=== PATIENT | female | born 1990 | race Caucasian/White ===

== ENCOUNTER 2016-09-18 18:20 | Emergency (ER) | payer OTHER ==
--- NOTE | 2016-09-18 18:51 | PROVIDER DOCUMENTATION ---
HPI-General Adult - General Chief Complaint: Flu Symptoms Stated Complaint: FLU SX Time Seen by Provider: 09/18/16 18:45 Source: patient Allergies/Adverse Reactions: Patient Allergies Allergy/AdvReac Type Severity Reaction Status Date / Time No Known Allergies Allergy Verified 11/13/14 17:48 Home Medications: Pnv95/Ferrous Fumarate/FA [ Caplet] 1 tab PO DAILY 08/19/15 - History of Present Illness -Gen Adult Nature of Presenting Problems: 26 y/o WF c/o fever/chills, cough, SOB, body aches x 2 days. Pt states cough is not productive at this time. Reports fever of 102F at home. States weakness and can't lift 1 y/o child. States sick contacts. Pt has had influenza vaccine this year. Taking tylenol and motrin at home. Review of Systems - Adult - REVIEW OF SYSTEMS - ADULT Constitutional: reports: see HPI, chills, fever Eyes: reports: no symptoms reported. denies: blurred vision, double vision Ears, Nose, Mouth & Throat: reports: no symptoms reported. denies: ear pain, sinus problem, throat pain Cardiovascular: reports: no symptoms reported. denies: chest pain, palpitations Respiratory: reports: see HPI, cough, shortness of breath. denies: wheezing Gastrointestinal: reports: no symptoms reported. denies: abdominal pain, constipation, diarrhea, nausea, vomiting Genitourinary: reports: no symptoms reported. denies: dysuria, frequency Musculoskeletal: reports: see HPI, muscle aches. denies: joint pain, joint swelling Integumentary: reports: no symptoms reported. denies: nail changes, rash Neurological: reports: see HPI, headache/migraines (with fever). denies: numbness, paresthesia Psychiatric: reports: no symptoms reported Endocrine: reports: no symptoms reported. denies: cold intolerance, heat intolerance Hematologic/Lymphatic: reports: no symptoms reported. denies: easy bruising, prolonged bleeding Allergic/Immunologic: reports: no symptoms reported All Other Systems: Reviewed and Negative Past History - Adult - PAST MEDICAL HISTORY-ADULT Review of Records: reports: Nursing Assessment Review, Medications Reviewed Major Childhood Illnesses: reports: denies history Cardiovascular: reports: denies history Respiratory: reports: denies history Gastrointestinal: reports: denies history Obstetrical/Gynecological: reports: denies history Genitourinary: reports: denies history Musculoskeletal: reports: denies history Neurological: reports: denies history Endocrine/Immune: reports: denies history Other Conditions: reports: denies history - PRIOR SURGERIES/PROCEDURES Surgical/Procedure History: reports: reviewed, not pertinent - PRIOR HOSPITALIZATIONS Prior Hospitalizations: reports: none - IMMUNIZATION STATUS Childhood Immunizations: See Nurse Assessment Flu Vaccine: See Nurse Assessment - FAMILY HISTORY Family History: reviewed, not pertinent - SOCIAL HISTORY Smoking: cigarettes, less than 1 pack/day Provider spent 3-5 mins advising pt. on dangers of tobacco.: Discussed manners to quit use, and f/u contacts for add'l counseling. Alcohol Use Frequency: never Physical Exam-General - PHYSICAL EXAM-ADULT Initial Vital Signs Reviewed: Yes - CONSTITUTIONAL General Appearance: alert, moderate distress - EYES Eyes: pink conjunctivae - HEAD, EARS, NOSE, MOUTH & THROAT HENMT: normocephalic/atraumatic, moist mucous membranes - NECK Neck: supple, normal inspection. negative: Brudzinski's sign, lymphadenopathy - RESPIRATORY Respiratory: no respiratory distress, decreased breath sounds, wheezing. negative: crackles, rales, rhonchi, stridor - CARDIOVASCULAR Cardiovascular: regular rate, rhythm. negative: bradycardia, tachycardia - GASTROINTESTINAL (ABDOMEN) Abdominal Exam: normal bowel sounds, non tender, soft. negative: distended, guarding, rigid, rebound - MUSCULOSKELETAL Back Exam: no CVA tenderness Extremity: normal gait, normal capillary refill. negative: abnormal NV exam - SKIN Integumentary: normal color, normal turgor, warm/dry - NEUROLOGIC Neurologic: negative: aphasia - PSYCHIATRIC Psych/Mental Status: normal mood/affect, normal thought content, normal thought process, oriented x 3 Progress - PLAN OF CARE/RESULTS Progress/Plan/Lab Results: Laboratory Tests 09/18/16 18:32 Influenza A (Rapid) NEGATIVE Influenza B (Rapid) NEGATIVE Orders Category Date Time Status CHEST-2 VIEWS [RAD] Stat Exams 09/18/16 18:[address] Stat Lab 09/18/16 18:32 Completed Acetaminophen [Tylenol] Med 09/18/16 20:52 Discontinued 1,000 mg PO NOW ONE Albuterol 2.5MG/Ipratrop 0.5MG [Duoneb (A & A)] Med 09/18/16 19:27 Discontinued 9 ml INH NOW ONE CefTRIAXONE [Rocephin] Med 09/18/16 19:25 Discontinued 1 gm IM NOW ONE Dexamethasone [Decadron] Med 09/18/16 19:26 Discontinued 10 mg IM NOW ONE Lidocaine 1% Pf [Xylocaine-Mpf 1%] Med 09/18/16 19:25 Discontinued 5 ml INJ NOW ONE Aerosol Treatments Routine Oth 09/18/16 19:28 Completed Aerosol Treatments Stat Oth 09/18/16 19:28 Completed Vital Signs Temp Pulse Resp BP Pulse Ox 09/18/16 20:42 102.0 F H 120 H 22 132/68 88 L 09/18/16 20:10 105 H 18 92 L 09/18/16 18:29 101.2 F H 69 18 151/90 93 L No Known Allergies Allergy (Verified 11/13/14 17:48) Pnv95/Ferrous Fumarate/FA [ Caplet] 1 tab PO DAILY 08/19/15 Hydrocodone/APAP 5 mg/325 mg [[place]-5] 1 each PO Q3-4H PRN PRN #30 tablet Albuterol Sulfate Inhaler [Ventolin Hfa] 2 puff INH Q6H PRN PRN #1 inhaler 09/18 Azithromycin 500 mg PO DAILY #7 tablet 09/18/16 Guaifenesin/D-Methorphan Hb/PE [Deconex Dmx Tablet] 1 each PO TID #30 tablet 07/25 Methylprednisolone [Medrol Dosepak] 4 mg PO DIRECTED #1 package 09/18/16 Laboratory 09/18/16 18:32 Influenza A (Rapid) NEGATIVE Influenza B (Rapid) NEGATIVE After A&A treatment, pulseOx dropped to high 80s, low 90s and ordered bloodwork for pt. Pt refused ABG and routine bloodwork. Discussed importance of finding cause of the problem, but pt still refused. - XRAY 1 XRAY Study: Chest XRAY Interpretation: No PNA Departure - Departure Time of Disposition Order: 19:27 DIAGNOSIS: Bronchitis Disposition: HOME 01 Certified Medical Emergency: Emergent Condition: Stable Additional Instructions: Take medications as directed. Follow up with PCP for recheck in 5-7 days. Return if symptoms get worse. Continue tylenol and motrin for fever/body aches. ED Follow Up Instructions: You have been treated by a care provider in the Emergency Department. These instructions are being provided to you so you can have an understanding of how to care for yourself upon discharge. Upon discharge from the Emergency Department, you are responsible for making arrangements for follow-up care by a physician of your choice. Take all prescribed medications as directed. Return to the Emergency Department immediately for any new or worsening symptoms. You may call the Physician Referral phone number at [phone] to obtain a list of Physicians who are taking new patients. Prescriptions: Azithromycin 500 mg PO DAILY #7 tablet Guaifenesin/D-Methorphan Hb/PE [Deconex Dmx Tablet] 1 each PO TID #30 tablet Methylprednisolone [Medrol Dosepak] 4 mg PO DIRECTED #1 package Albuterol Sulfate Inhaler [Ventolin Hfa] 2 puff INH Q6H PRN PRN #1 inhaler PRN Reason: Shortness Of Breath Referrals: Fernanda Alexandra MD [STAFF PHYSICIAN] - Forms: Return to School/Parent Work Instructions: Acute Bronchitis, [id number], Azithromycin tablets, Guaifenesin oral ER tablets, Methylprednisolone tablets, Albuterol inhalation solution Attestation - Physician/ Mid-level Attestation Patient care was provided by Mid-level provider ([employer]IC/PA):: Yes Mid-level provider:: Doris Campa Mid-level documentation review:: The Mid-level provider documentation, treatment plan and medical decision making was reviewed by the physician who agrees with all treatment and medical decision making by the [facility].
[2016-09-18] MEDS ORDERED: ROCEPHIN IM ONE (19:25)
[2016-09-18] MEDS ORDERED: XYLOCAINE-MPF 1% INJ ONE (19:25)
[2016-09-18] MEDS ORDERED: DECADRON IM ONE (19:26)
[2016-09-18] MEDS ORDERED: DUONEB (A & A) INH ONE (19:27)
[2016-09-18 20:49] VITALS: BP 132/68
[2016-09-18] MEDS ORDERED: TYLENOL PO ONE (20:52)
--- NOTE | 2016-09-19 10:16 | Diag Imaging Result Document ---
PROCEDURE NAME: CHEST-2 VIEWS - 09/18/2016 PA AND LATERAL RADIOGRAPH OF THE CHEST: COMPARISON: None available. FINDINGS: There appears to be a calcified granuloma at the periphery of the right upper lung zone. The lungs are grossly clear, otherwise. There is no definite pleural fluid collection identified. Cardiac silhouette and central vasculature are grossly unremarkable. IMPRESSION: No definite acute chest pathology.
== END 2016-09-18 21:23 | disposition home or self-care (01) ==
LOC: P.ED 18:20
DX: J40 Bronchitis, not specified as acute or chronic (principal); R50.9 Fever, unspecified; R05 Cough; R53.1 Weakness; R06.02 Shortness of breath; M79.1 Myalgia; R51 Headache; F17.210 Nicotine dependence, cigarettes, uncomplicated; Z71.6 Tobacco abuse counseling; Z79.899 Other long term (current) drug therapy
CPT/HCPCS: 71020; 87804; 94640; 96372; J0696